=== PATIENT | female | born 2005 ===

== ENCOUNTER 2025-04-15 19:03 | Emergency (ER) | payer SELFPAY ==
[2025-04-15 19:04] VITALS: BP 128/76
--- NOTE | 2025-04-15 19:36 | ED.GENMED ---
History of Present Illness
General
Chief Complaint: Musculo-Skeletal Complaint
Source: patient
Exam Limitations: none
Time Seen by Provider: 04/15/25 19:16
Nursing documentation reviewed up to this point in time: agreed with
History of Present Illness
History of Present Illness:
see MDM
Review of Systems
Review of Systems
Allergies reviewed?: Yes
All Other Systems: Not applicable
Phy Exam
Physical Exam
Physical Exam:
See MDM
Course
Orders/Labs/Results
Orders:
Orders
04/15/25 19:09
CR Hand - Left Min 3 Views Urgent
Comment:
Reason For Exam: injury to first finger/thumb
Vital Signs
Initial and Last Documented VS:
Initial Vital Signs
Temp Pulse Resp BP Pulse Ox
36.8 C 87 18 128/76 100
04/15/25 19:04 04/15/25 19:04 04/15/25 19:04 04/15/25 19:04 04/15/25 19:04
Last Documented Vital Signs
Temp Pulse Resp BP Pulse Ox
36.8 C 87 18 128/76 100
04/15/25 19:04 04/15/25 19:04 04/15/25 19:04 04/15/25 19:04 04/15/25 19:39
MDM/Problems Addressed
Differential Diagnosis Includes:
see MDM
MDM/Problems Addressed:
Note:
CHIEF COMPLAINT(S)
Suspected finger fracture from a dumpster lid incident.
HISTORY OF PRESENT ILLNESS
The patient is a 19-year-old female [id number] who presented after injuring her left index finger due to a dumpster lid falling on it while taking out recycling at her work, [employer]. She reports a 'blood blister' on the affected
finger. The patient initially applied ice until it no longer felt cold. She expressed the ability to bend the digit
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 The conversation
included discussions on providing a work note for her employer at [employer] to excuse her from work duties that may strain the injury or allow limited use of her left hand.
PHYSICAL EXAM
GENERAL: Alert , in no apparent distress, comfortable at rest
HEAD: NCAT
CV: 2+ radial pulse, cap refill intact
NEUROLOGICAL: Alert and oriented, no focal neuro deficits, , 5/5 strength, sensation intact, ambulation slight limp right leg
SKIN: Warm and dry, 3 mm rounded blood blister to the palmar surface of the left index finger DIP joint region, slight soft tissue swelling, no wounds
MUSCULOSKELETAL: Left index finger distal with slight soft tissue swelling and tenderness at the DIP but full range of motion intact, soft fat pad with a small blood blister and no subungual hematoma
PSYCH: Normal and appropriate interaction.
Nursing notes reviewed and vital signs reviewed.
PROBLEM LIST
Acute:
- Finger contusion with a blood blister following trauma.
PLAN
- Provide a finger splint to allow the finger to rest and prevent further injury.
- Issue a work note excusing patient from work duties at [employer] for tomorrow, with limited use of the left hand when she returns on Thursday.
- Recommend follow-up with workplace�s suggested healthcare providers if persistent soreness or for further clearance to resume normal duties.
DIFFERENTIAL DIAGNOSIS
The Differential Diagnosis includes, in no particular order and is not limited to:
- Finger contusion
- Subungual hematoma
- Finger fracture (ruled out with initial imaging)
- Sprained finger
- Soft tissue injury
- Tendon injury
- Ligament sprain
- Infection (secondary to blister)
- Joint effusion
- Nerve compression (secondary to swelling)
19-year-old right-hand dominant female presents with left index fingertip injury when she excellently dropped something on it at work tonight. She is a small blood blister on the palmar surface of the distal finger, no subungual hematoma, full
range of motion of the DIP. A little bit of soft tissue swelling. Her x-ray was independently reviewed by me and negative for fracture. She was splinted with a distal fingertip splint for comfort. Recommended to apply ice, take ibuprofen. She
can be off of work tomorrow and return as needed with light duty on the left hand for a week. Return precautions, Workmen's Comp. also recommended as needed
*Pulse Oximetry
SaO2: 100
Oxygen Mode of Delivery: Room air
Patient hypoxic: no (100)
*Critical Care Note
Total Time (30-74mins, 75-104mins- exclusive of procedures): Not Applicable
ED Attending Note
-
Portions of this chart may have been created with voice recognition software.� Occasional wrong word or��sound alike� substitutions may have occurred due to the inherent limitations of voice recognition software.
Discharge Plan
Departure
Patient Disposition: Home (Routine Discharge)
Date of Disposition: 04/15/25
Time of Disposition: 19:54
Patient with high blood pressure during this ER visit?: No
Condition: Fair
Covid-19: Not Applicable
Discharge Problem:
Contusion of finger
Instructions: Contusion (DC)
Referrals:
Mari Harvey MD [Family Provider, [facility]]
Stand Alone Forms: Return to Work
Activity Restrictions/Additional Instructions:
You have a bruise to your fingertip but no signs of a fracture. The blood blisters that should resolve. Ice off-and-on 10 minutes at a time today and tomorrow every few hours. Take ibuprofen every 8 hours as needed for pain and swelling. Wear
the splint for 1 or 2 days just to help prevent it from banging up against anything. You can take it off to shower.
Follow-up with Workmen's Comp. as needed. Return for any concerns
Interventions
Interventions:
*Risk Screen - Suicide Last Done: 04/15/25 19:04
*General Assessment Last Done: 04/15/25 19:23
*Neglect/Abuse Screening Last Done: 04/15/25 19:04
*ED- Fall Risk Assessment Last Done: 04/15/25 19:23
*ED COVID-19 Vaccine History Last Done: 04/15/25 19:23
*ED Influenza Vaccine History Last Done: 04/15/25 19:23
*Nursing Disposition Last Done: 04/15/25 20:17
ED-Musculoskeletal Assessment Last Done: 04/15/25 19:36
Discharge Date and Time
Discharge Date/Time: 04/15/25 20:20
Print Language: MOLDOVAN
== END 2025-04-15 20:20 | disposition home or self-care (01) ==
LOC: EMR 19:03
PROVIDERS: EMERGENCY PHYSICIAN Emergency Medicine; FAMILY PHYSICIAN Family Medicine
DX: S60.022A Contusion of left index finger without damage to nail, initial encounter (principal); W20.8XXA Other cause of strike by thrown, projected or falling object, initial encounter; Y92.89 Other specified places as the place of occurrence of the external cause; Y99.0 Civilian activity done for income or pay
CPT/HCPCS: 29130; 99283; 73130